=== PATIENT | female | born 1985 | race Caucasian/White ===

== ENCOUNTER 2021-12-18 23:28 | Emergency (ER) | payer BC ==
[2021-12-18] MEDS ORDERED: Dexamethasone 10 MG/ML SDV IM STA (23:57)
[2021-12-18] MEDS ORDERED: diphenhydrAMINE 50 MG/ML SDV IVPUSH STA (23:57)
[2021-12-18] MEDS ORDERED: Famotidine 20 MG/2 ML SDV IVPUSH STA (23:57)
== END 2021-12-19 01:29 | disposition home or self-care (01) ==
LOC: MW.ED 23:28
DX: T78.40XA Allergy, unspecified, initial encounter (principal); Z91.041 Radiographic dye allergy status; Z79.899 Other long term (current) drug therapy
CPT/HCPCS: 81001; 81025; 96372; 99283; J1100

== ENCOUNTER 2023-06-07 10:18 | Day surgery (SDC) | payer BC ==
[~2023-06-07 10:18] MED LIST: Albuterol 0.083% 2.5 MG/3 ML Neb Soln NEB PRN; HYDROmorphone 1 MG/ML Syringe IVPUSH PRN; Metoclopramide 10 MG/2 ML SDV IVPUSH PRN; Morphine 2 MG/ML SYRINGE IVPUSH PRN; Naloxone 0.4 MG/ML SDV IVPUSH PRN; Ondansetron 4 MG/2 ML SDV IVPUSH PRN; Scopolamine 1.5 MG Transdermal Patch TOP ONE; Sodium Chloride 0.9% 10 ML Syringe FLUSH PRN; Sodium Chloride 0.9% 2.5 ML Syringe FLUSH PRN; Sodium Chloride 0.9% 20 ML SDV IV PRN; droPERidol 5 MG/2 ML SDV IVPUSH PRN; fentaNYL 50 MCG/ML SDV IVPUSH PRN
[2023-06-07 10:50] LABS: HEMOGLOBIN 14.3 g/dL (12.0-16.0); MEAN CORPUSCULAR HEMOGLOBIN 32.5 pg (28.0-32.0); MEAN CORPUSCULAR HGB CONC 36.7 g/dL (32.0-36.0); MEAN CORPUSCULAR VOLUME 88.6 fL (83.0-99.0); PLATELET COUNT,PLT 300 K/uL (150-400); WHITE BLOOD CELL COUNT,WBC 8.76 K/uL (3.9-11.3)
[2023-06-07] MEDS ORDERED: Ondansetron 4 MG/2 ML SDV ONE ×2 (10:52→12:30)
[2023-06-07] MEDS ORDERED: Lidocaine 2% 5 ML SDV ONE (10:52)
[2023-06-07] MEDS ORDERED: Rocuronium Bromide 50 MG/5 ML Syringe ONE (10:53)
[2023-06-07] MEDS ORDERED: fentaNYL 100 MCG/2 ML SDV ONE (10:53)
[2023-06-07] MEDS ORDERED: Propofol 200 MG/20 ML SDV ONE (11:06)
[2023-06-07] MEDS ORDERED: Sugammadex Sodium 200 MG/2 ML VIAL ONE (11:07)
[2023-06-07] MEDS ORDERED: Ketorolac 30 MG/ML SDV ONE (11:07)
[2023-06-07] MEDS ORDERED: Methylene Blue 1% 100MG/10 ML SDV ONE (11:34)
[2023-06-07] MEDS ORDERED: Bupivacaine 0.25% 30 ML SDV ONE (11:35)
[2023-06-07] MEDS ORDERED: Morphine 10 MG/ML SDV ONE (11:38)
[2023-06-07] MEDS ORDERED: fentaNYL 250 MCG/5 ML SDV ONE (12:08)
[2023-06-07] MEDS ORDERED: Lactated Ringers 1,000 ML IV SCH (12:15)
[2023-06-07] MEDS ORDERED: Famotidine 20 MG/2 ML SDV ONE (12:27)
[2023-06-07] MEDS ORDERED: Ropivacaine 0.5% 5 MG/ML 30 ML SDV ONE (12:27)
[2023-06-07] MEDS ORDERED: Dexamethasone 4 MG/ML 5 ML MDV ONE (12:30)
[2023-06-07] MEDS ORDERED: ceFAZolin 2 GM Vial ONE (12:30)
[2023-06-07] MEDS ORDERED: propofoL 50 ML ONE (12:46)
[2023-06-07] MEDS ORDERED: Heparin Sodium 5,000 Units/ML Vial ONE (14:08)
== END 2023-06-07 14:57 | disposition home or self-care (01) ==
LOC: MW.SDS 10:18
PROVIDERS: ATTEND Obstetrics & Gynecology
DX: N93.9 Abnormal uterine and vaginal bleeding, unspecified (principal); R10.2 Pelvic and perineal pain
CPT/HCPCS: 36415; 49321; 58350; 84703; 85027; C1729; J0131; J1100; J1885; J2270; J2405; J2704; J2795; J3010; J3490; J7030; J7120; Q9968; 00840; 64488; J0690; J1644

== ENCOUNTER 2024-01-15 03:49 | Emergency (ER) | payer BC ==
[2024-01-15 04:20] LABS: BASOPHILS ABSOLUTE AUTO 0.04 K/uL (0.00-0.20); BASOPHILS PERCENT AUTO 0.3 % (0.0-1.0); EOSINOPHILS ABSOLUTE AUTO 0.09 K/uL (0.00-0.45); EOSINOPHILS PERCENT AUTO 0.6 % (0.0-6.0); HEMATOCRIT 34.9 % (37.0-47.0); HEMOGLOBIN 12.6 g/dL (12.0-16.0); IMMATURE GRAN ABSOLUTE AUTO 0.04 K/uL (0.00-0.05); IMMATURE GRAN PERCENT AUTO 0.3 % (0.0-0.4); LYMPHOCYTES ABSOLUTE AUTO 1.97 K/uL (1.00-4.80); LYMPHOCYTES PERCENT AUTO 13.4 % (24.0-44.0); MEAN CORPUSCULAR HGB CONC 36.1 g/dL (32.0-36.0); MEAN CORPUSCULAR VOLUME 88.6 fL (83.0-99.0); MEAN PLATELET VOLUME 10.2 fL (9.4-12.3); MONOCYTES ABSOLUTE AUTO 1.15 K/uL (0.00-0.80); MONOCYTES PERCENT AUTO 7.8 % (0.0-8.0); NEUTROPHILS ABSOLUTE AUTO 11.46 K/uL (1.80-7.70); NEUTROPHILS PERCENT AUTO 77.6 % (41.0-71.0); PLATELET COUNT,PLT 252 K/uL (150-400); RED BLOOD CELL COUNT 3.94 M/uL (4.10-5.30); WHITE BLOOD CELL COUNT,WBC 14.75 K/uL (3.9-11.3)
[2024-01-15 04:24] LABS: APPEARANCE,URINE CLEAR; BILIRUBIN,URINE NEGATIVE (NEGATIVE); COLOR,URINE YELLOW; GLUCOSE,URINE NEGATIVE (NEGATIVE); KETONES,URINE 15 mg/dL (NEGATIVE); LEUKOCYTE ESTERASE,URINE NEGATIVE (NEGATIVE); NITRITE,URINE NEGATIVE (NEGATIVE); OCCULT BLOOD,URINE TRACE-INTACT (NEGATIVE); PH,URINE 5.5 (5.0-8.0); PROTEIN,URINE NEGATIVE (NEGATIVE); UROBILINOGEN,URINE 0.2 EU/dL (<2.0)
[2024-01-15 04:31] LABS: BACTERIA,URINE RARE (NEGATIVE); MUCUS,URINE NOT SEEN (NONE-MOD); SQUAMOUS EPITHELIAL CELLS,UR FEW; WBC,URINE 0-1 (0-5/HPF)
[2024-01-15 04:42] LABS: A/G RATIO 0.9 (0.9-1.6); BILIRUBIN TOTAL 0.4 mg/dL (0.2-1.0); CALCIUM 8.6 mg/dL (8.5-10.1); CARBON DIOXIDE,CO2 18.8 mmol/L (21.0-32.0); CREATININE 0.7 mg/dL (0.6-1.0); EST CRCL DRUG DOSING (CG) 89.26 mL/min; POTASSIUM,K 3.5 mmol/L (3.5-5.1); PROTEIN TOTAL,TP 6.4 g/dL (6.4-8.2)
[2024-01-15] MEDS: Cephalexin 500 MG Cap PO ONE (05:00)
== END 2024-01-15 05:10 | disposition home or self-care (01) ==
LOC: MW.ED 03:49
DX: R33.9 Retention of urine, unspecified (principal); E03.9 Hypothyroidism, unspecified; Z79.890 Hormone replacement therapy; Z79.899 Other long term (current) drug therapy; Z75.8 Other problems related to medical facilities and other health care
CPT/HCPCS: 36415; 51702; 80053; 81001; 85025; 99284; A9270; 99283

== ENCOUNTER 2025-02-08 18:41 | Emergency (ER) | payer BC | END 2025-02-08 22:58 | disposition left against medical advice (07) | LOC: MW.ED 18:41 | DX: Z53.21 Procedure and treatment not carried out due to patient leaving prior to being seen by health care provider (principal) | CPT/HCPCS: 72128; 72128-26; 72131; 72131-26 ==